=== PATIENT | female | born 1950 | race Caucasian/White ===

== ENCOUNTER 2025-09-23 13:14 | Emergency (ER) | payer MEDICARE, OTHER | END 2025-09-23 14:46 | disposition home or self-care (01) | LOC: NAV ERS 13:14 | DX: S00.03XA Contusion of scalp, initial encounter (principal); S50.311A Abrasion of right elbow, initial encounter; E11.9 Type 2 diabetes mellitus without complications; I10 Essential (primary) hypertension; V00.841A Fall from standing electric scooter, initial encounter; Z86.73 Personal history of transient ischemic attack (TIA), and cerebral infarction without residual deficits; Z79.82 Long term (current) use of aspirin; Z79.4 Long term (current) use of insulin; Z79.899 Other long term (current) drug therapy | CPT/HCPCS: 70450; 72125 ==